=== PATIENT | female | born 1970 | race Hispanic/Latino ===

== ENCOUNTER 2018-10-31 08:29 | Emergency (ER) | payer SELFPAY ==
[2018-10-31] MEDS ORDERED: Lidocaine 1% w/Epinephrine 1:100K 20 ML VIAL ONE (09:06)
[2018-10-31] MEDS ORDERED: Adacel (T-DAP) 0.5 ML SYRINGE ONE (09:22)
== END 2018-10-31 09:58 | disposition home or self-care (01) ==
LOC: ERS 08:29
DX: S61.411A Laceration without foreign body of right hand, initial encounter (principal); E11.9 Type 2 diabetes mellitus without complications; Z23 Encounter for immunization; W26.8XXA Contact with other sharp object(s), not elsewhere classified, initial encounter; Y93.E5 Activity, floor mopping and cleaning
CPT/HCPCS: 12002; 90471; 90715; J2001

== ENCOUNTER 2018-11-14 16:34 | Emergency (ER) | payer SELFPAY | END 2018-11-14 17:00 | disposition home or self-care (01) | LOC: ERS 16:34 | DX: S61.011D Laceration without foreign body of right thumb without damage to nail, subsequent encounter (principal); E11.9 Type 2 diabetes mellitus without complications ==